=== PATIENT | male | born 1985 | race Caucasian/White ===

== ENCOUNTER 2024-01-29 19:44 | Emergency (ER) | payer OTHER ==
[~2024-01-29] VITALS: Ht 175.3 cm; Wt 204.5 kg
[~2024-01-29 19:44] MED LIST: LISI-285 PO
[2024-01-29 20:19] LABS: Basophils # (auto) 0 10 ^3/uL (0-0.2); Basophils % (auto) 0.5 % (0.0-2.0); Eosinophils # (auto) 0.1 10 ^3/uL (0-0.8); Eosinophils % (auto) 1.8 % (0.0-7.0); Lymphocytes # (auto) 2.6 10 ^3/uL (0.4-5.4); Lymphocytes % (auto) 32.6 % (10.0-50.0); Mean Corpuscular Hemoglobin 29.3 pg (28.0-32.0); Mean Corpuscular Hgb Conc. 33.4 g/dL (32.0-36.0); Mean Corpuscular Volume 87.6 fL (80.0-100.0); Monocytes # (auto) 0.5 10 ^3/uL (0-1.3); Monocytes % (auto) 6.7 % (0.0-12.0); Neutrophils # (auto) 4.6 10 ^3/uL (1.6-8.6); Neutrophils % (auto) 58.4 % (37.0-80.0); Red Blood Cells 5.13 10^6/uL (4.5-5.90); Red Cell Distribution Width 14.5 % (11.8-14.3); White Blood Cell 7.9 10^3/uL (4.4-10.8)
[2024-01-29] MEDS: ALBUTEROL SULF 2.5 MG/0.5ML(0.5%) NEB SOLN NEB ONE (20:23)
[2024-01-29] MEDS: IPRATROPIUM BROM 0.5 MG/2.5ML INH SOL NEB ONE (20:23)
[2024-01-29] MEDS: methylPREDNISolone SOD SUCC 125 MG/2 ML VL IV ONE (20:28)
[2024-01-29] MEDS: cefTRIAXone 1GM/50ML D5W 50 ML IV ONE (20:29)
[2024-01-29] MEDS: SODIUM CHLORIDE 0.9% 1,000 ML IV ONE (20:30)
[2024-01-29 20:55] LABS: Alanine Aminotransferase 93 U/L (7-40); Alkaline Phosphatase 142 U/L (46-116); Anion Gap 7 (5-15); Aspartate Aminotransferase 63 U/L (13-40); BUN/Creatinine Ratio 13.7 (10.0-20.0); Bilirubin, Total 0.3 mg/dL (0.2-1.0); Blood Urea Nitrogen 13 mg/dL (9-23); Calcium 9.4 mg/dL (8.7-10.4); Carbon Dioxide 27 mmol/L (20-30); Chloride 108 mmol/L (98-107); Glucose 174 mg/dL (74-106); Potassium 3.8 mmol/L (3.5-5.1); Sodium 142 mmol/L (136-145)
[2024-01-29 21:07] LABS: Magnesium 1.7 mg/dL (1.6-2.6)
[2024-01-29 21:26] VITALS: BP 157/96; PULSE 110; RESP 18; TEMP 99.5; O2SAT 92
[2024-01-29] MEDS ORDERED: METH4PAK PO (21:35)
== END 2024-01-29 22:37 | disposition home or self-care (01) ==
LOC: ER 19:44 → EDBD 19:44 → ER 22:37
DX: J06.9 Acute upper respiratory infection, unspecified (principal); J45.909 Unspecified asthma, uncomplicated; E11.9 Type 2 diabetes mellitus without complications; I10 Essential (primary) hypertension
CPT/HCPCS: 36415; 71046; 80053; 83735; 83880; 84484; 85025; 93005; 94640; 96365; 96375; 99285; J0696; J2919; J7030; J7644